=== PATIENT | female | born 1980 | race Caucasian/White ===

== ENCOUNTER → 2016-09-15 | Outpatient (REF) | payer OTHER | LOC: M LABNEURO 11:49 | PROVIDERS: ATTEND Psychiatry & Neurology Neurology | DX: Z13.1 Encounter for screening for diabetes mellitus (principal); E07.9 Disorder of thyroid, unspecified; R20.0 Anesthesia of skin; R53.1 Weakness ==

== ENCOUNTER → 2017-04-02 | Outpatient (CLI) | payer OTHER ==
--- NOTE | 2017-04-02 11:56 | REP ---
RIGHT FOURTH DIGIT, FOUR VIEWS: There is no evidence of an acute fracture, dislocation or intrinsic bone disease. IMPRESSION: No fracture or dislocation. Signed by Dl Cueva MD 04/02/2017 07:28 P
== END ==
LOC: M LRY 11:04
PROVIDERS: ATTEND Physician Assistant
DX: S69.91XA Unspecified injury of right wrist, hand and finger(s), initial encounter (principal); X58.XXXA Exposure to other specified factors, initial encounter; Y93.9 Activity, unspecified; Y92.9 Unspecified place or not applicable; Y99.8 Other external cause status

== ENCOUNTER → 2017-05-19 | Outpatient (REF) | payer OTHER ==
[2017-05-19 17:44] LABS: FREE T4 0.96 NG/DL (0.76-1.46)
[2017-05-19 18:58] LABS: BASO % 0.2 % (0.0-1.0); EOS # 0.1 K/mm3 (0.0-0.50); EOS % 1.6 % (0.0-3.0); LARGE UNSTAINED CELL # 0.2 K/mm3 (0.0-0.4); LARGE UNSTAINED CELL % 1.8 % (0.0-4.0); LYMPH # 2.4 K/mm3 (1.5-4.5); LYMPH % 29.3 % (24.0-44.0); MEAN CORPUSCULAR HEMOGLOBIN 31.5 pg (27.0-33.0); MEAN CORPUSCULAR HGB CONC 34.4 g/dl (32.0-36.5); MEAN CORPUSCULAR VOLUME 91.7 fl (80.0-96.0); MONO # 0.4 K/mm3 (0.0-0.8); MONO % 5.5 % (0.0-5.0); NEUTROPHILS % 61.5 % (36.0-66.0); PLATELET COUNT, AUTOMATED 243 k/mm3 (150-450); RED CELL DISTRIBUTION WIDTH 11.4 % (11.5-14.5)
== END ==
LOC: M LAB REF 16:48
PROVIDERS: ATTEND Family Medicine
DX: F34.1 Dysthymic disorder (principal)